=== PATIENT | female | born 1965 | race Caucasian/White ===

== ENCOUNTER 2017-07-11 06:54 | Day surgery (SDC) | payer BC, OTHER ==
[~2017-07-11 06:54] MED LIST: Lactated Ringers 1,000 ML IV SCH
[2017-07-11] MEDS ORDERED: Propofol 200 MG/20 ML SDV IV ONE (07:45)
--- NOTE | 2017-07-11 08:15 | PCM.OPNOTE ---
- General Post-Op/Procedure Note Date of Surgery/Procedure: 07/11/17 Operative Procedure(s): c scope Findings: sigmoid diverticulosis Pre Op Diagnosis: screening Post-Op Diagnosis: sigmoid diverticulosis Anesthesia Technique: MAC Primary Surgeon: Mani Bey Anesthesia Provider: Jay Aguero Pathology: none Complications: None Condition: Good Free Text/Narrative:: see dictation
--- NOTE | 2017-07-11 08:37 | OR ---
DATE OF OPERATION: 07/11/2017 SURGEON: aMni Bey MD PROCEDURE PERFORMED: Colonoscopy. PREOPERATIVE DIAGNOSIS: Need for screening C-scope. POSTOPERATIVE DIAGNOSIS: Sigmoid diverticulosis. INDICATIONS: This is a 52-year-old white female, who is referred with the need for screening C-scope. She was offered and accepted same. DESCRIPTION OF PROCEDURE: After an excellent IV sedation was administered, digital rectal exam was performed. No marked abnormality was noted. Flexible colonoscope was inserted and advanced to the cecum without difficulty. The prep was excellent and the following findings were noted. Ascending colon was unremarkable. Transverse colon was unremarkable. Descending colon was unremarkable. Sigmoid, scattered diverticula. Rectum and anus were unremarkable. Colon was deflated. Scope was removed. The patient tolerated the procedure well, and was taken to recovery room in good condition. /[id number] /EDYTAL
[2017-07-11] MEDS ORDERED: Ketorolac 30 MG/ML SDV IVPUSH ONE (09:35)
== END 2017-07-11 10:45 | disposition home or self-care (01) ==
LOC: FB.SDS 06:54
PROVIDERS: ATTEND Surgery
DX: Z12.11 Encounter for screening for malignant neoplasm of colon (principal); J30.9 Allergic rhinitis, unspecified; F32.9 Major depressive disorder, single episode, unspecified; A60.00 Herpesviral infection of urogenital system, unspecified; K21.9 Gastro-esophageal reflux disease without esophagitis; K57.30 Diverticulosis of large intestine without perforation or abscess without bleeding; Z79.899 Other long term (current) drug therapy; Z91.048 Other nonmedicinal substance allergy status
CPT/HCPCS: 45378; J1885; J2704; J7120